=== PATIENT | male | born 1970 | race Caucasian/White ===

== ENCOUNTER 2022-11-27 07:44 | Outpatient (CLI) | payer BC, SELFPAY | END 2022-11-27 07:45 | disposition home or self-care (01) | PROVIDERS: PCP Internal Medicine; Visit Provider Family Medicine | DX: I10 Essential (primary) hypertension (principal); L03.90 Cellulitis, unspecified; M25.549 Pain in joints of unspecified hand | CPT/HCPCS: 80053; 84550; 86200; 86431 ==